=== PATIENT | male | born 1990 | race Caucasian/White ===

== ENCOUNTER 2017-04-20 12:43 | Emergency (ER) | payer SELFPAY ==
[~2017-04-20] VITALS: Ht 193 cm; Wt 124.3 kg
[2017-04-20 12:48] VITALS: BP 152/101
--- NOTE | 2017-04-20 12:59 | NUR ---
PATIENT AMBULATED TO BED #12
[2017-04-20] MEDS ORDERED: LIDOCAINE 1% ***ER ONLY *** 10 MG/ML VIAL INJ ONE (13:25)
--- NOTE | 2017-04-20 13:25 | NUR ---
LEFT INDEX FINGER PAIN, CUT FINGER WITH LIGHT BULB TWO DAYS AGO AND GLASS WAS STUCK.DENIES N/V/D; SKIN IS PINK/WARM/DRY; AAOX4 WITH EVEN AND STEADY GAIT; LUNGS CLEAR BL; HR EVEN AND REGULAR; PT DENIES ANY FEVER, CP, SOB, OR COUGH AT THIS TIME; PATIENT STATES PAIN OF 6/10 AT THIS TIME; VSS; PATIENT POSITIONED FOR COMFORT; HOB ELEVATED; BEDRAILS UP X2; BED DOWN. ER MD MADE AWARE OF PT STATUS.
[2017-04-20] MEDS ORDERED: NEOMYCIN/POLYMYXIN/BACITRACIN 0.9 GM/1 PKT TP ONE (14:00)
[2017-04-20 14:21] VITALS: BP 140/90
--- NOTE | 2017-04-20 14:22 | NUR ---
Patient discharged with v/s stable. Written and verbal after care instructions given and explained. Patient alert, oriented and verbalized understanding of instructions. Ambulatory with steady gait. All questions addressed prior to discharge. ID band removed. Patient advised to follow up with PMD. Rx of MOTRIN & CLINDAMYCIN given. Patient educated on indication of medication including possible reaction and side effects. Opportunity to ask questions provided and answered.
== END 2017-04-20 14:22 | disposition home or self-care (01) ==
LOC: MED 12:43
DX: L02.512 Cutaneous abscess of left hand (principal)
CPT/HCPCS: 10060; 73140; 90471; 90715; 99284; J2001; Q0092